=== PATIENT | female | born 1960 | race Caucasian/White ===

== ENCOUNTER → 2019-08-06 | Day surgery (SDC) | payer MEDICARE, MEDICAID ==
[~2019-08-06] MED LIST: ACETAMINOPHEN 1,000 MG/100 ML BTL IVPB ONE; BUPIVACAINE 0.5% W/EPI MPF 30 ML VIAL SQ ONE; CLINDAMYCIN 600MG/50ML PREMIX 600 MG/50 ML BAG IVPB ONE; Clindamycin 600mg vial 150 MG/ML VIAL IR ONE; FAMOTIDINE 20MG TABLET PO ONE; FENTANYL PF 100MCG/2ML VIAL IV ONE; LIDOCAINE 1% W/EPI 1:200,000 MPF 30ML SQ ONE; LIDOCAINE 2% MDV (20MG/ML) 20ML VIAL IV ONE; MECLIZINE 25 MG TABLET PO ONE; METOCLOPRAMIDE 10 MG TABLET PO ONE; MIDAZOLAM HCL 2MG/2ML VIAL IV ONE; MORPHINE SULFATE IV ONE; PROPOFOL 10 MG/ML VIAL IV ONE; RINGERS SOLUTION,LACTATED 1,000 ML IV ONE; SODIUM CHLORIDE 0.9% IV ONE
--- NOTE | 2019-08-06 07:46 | History and Physical - [facility] ---
CHIEF COMPLAINT/HISTORY OF CHIEF COMPLAINT: This patient with a history of a post cervical laminectomy radiculopathy has an implanted spinal infusion system which was infusing Hydromorphone. This patient was unable to make appropriate visits and sessions for the refill, the pump has gone dry and has been nonfunctional for an extended period of time. Because of the potential risks of a device nonfunctional over a period of months and by her request to reactivate the system she is here for pump change along with catheter testing for appropriate functionality. PAST MEDICAL HISTORY: Asthmatic bronchitis, hepatitis, depression, and difficulty sleeping. PAST SURGICAL HISTORY: Hysterectomy, appendectomy, and cervical spine fusion. MEDICATIONS ON ADMISSION: List to be provided. ALLERGIES: PENICILLIN AND SEAFOOD. FAMILY/PSYCHOSOCIAL HISTORY: Social history - Smoking. Family history - Cancer, cerebrovascular disease, and asthma. SYSTEMS REVIEW: The patient seems appropriate although anxious. The remainder of the systems review is positive for headaches, sleep disturbance, and degenerative arthritis. PHYSICAL EXAMINATION: Height is 5'8", weight is 150. No vital signs. HEENT: Within normal limits. LUNGS: Clear. HEART: Rapid and regular. ABDOMEN: Nontender. MUSCULOSKELETAL: Examination of the musculoskeletal system shows the midline catheter incision approximating T12-L1, pump at the incisional site at the right posterior gluteal margin is identified, and the incisions are intact. Upper extremity functionality shows pain across both upper extremities along with pain moving across the back into both legs. Sensory ramires are intact. NEUROLOGIC: Cranial nerves are intact. IMPRESSION: 1. POST CERVICAL LAMINECTOMY SYNDROME, ICD-10 CODE M96.1 WITH CERVICAL RADICULOPATHY, ICD-10 CODE M54.12. 2. LUMBAR RADICULOPATHY, ICD-10 CODE M54.16. 3. IMPLANTED SPINAL INFUSION SYSTEM DEVICE NONFUNCTIONAL. PLAN: The patient is here for removal and replacement of the pump, at the same time to insure appropriate functionality we will test the spinal catheter. If the spinal catheter is nonfunctional then the catheter along with the pump will be changed. Her infusion will Hydromorphone, we will start at a basal rate of 0.2 mg a day at a standard starting concentration. A series of reprogramming's will be set-up. If the catheter is replaced then an epidural blood patchy will be acquired, if it is just simply the pump no blood patch. The procedure will be considered outpatient although an overnight stay will be evaluated depending upon the extent of surgery. The risks, side effects, and complications have been reviewed and discussed. JOB NUMBER: [id number] MTDD
--- NOTE | 2019-08-07 08:43 | Operative Note - [facility] ---
DATE OF SURGERY: 08/06/2019 PREOPERATIVE DIAGNOSIS: 1. POST CERVICAL LAMINECTOMY SYNDROME, ICD-10 CODE M96.1 WITH RADICULOPATHY, ICD-10 CODE M54.12 AND LUMBAR RADICULOPATHY, ICD-10 CODE M54.16. 2. IMPLANTED SPINAL CATHETER WITH INFUSION DEVICE NONFUNCTIONAL. OPERATION: 1. INCISION, SUBCUTANEOUS DISSECTION, REMOVAL AND REPLACEMENT OF PROGRAMMABLE PUMP 40 ML MEDTRONIC. 2. DIAGNOSTIC MYELOGRAPHY WITH RADIOLOGIC SUPERVISION AND INTERPRETATION UTILIZING INDWELLING CATHETER. 3. REPLACEMENT OF PUMP WITH NEW MEDTRONIC 40 ML PROGRAMMABLE FILLED MORPHINE 10 MG PER ML PLACED ONTO FIELD, INTERFACED TO INDWELLING CATHETER. 4. PLACEMENT OF CURVED ACCESS PALOMARES NEEDLE INTO ACCESS PORT, ASPIRATION AND CLEARING CATHETER OF OPIOID AND CSF MIXTURE. 5. DIAGNOSTIC MYELOGRAPHY WITH RADIOLOGIC SUPERVISION AND INTERPRETATION. 6. BOLUS MORPHINE INTO SUBARACHNOID SPACE WITH ACCESS PORT 0.05 MG. 7. PLACEMENT OF PUMP WITH CATHETER INTO POUCH SECURING TO POSTERIOR FASCIA NONABSORBABLE SUTURE THREE POINTS PUMP EYELETS AND CLOSURE OF INCISIONS USING STRATAFIX SUTURE 2-0 FASCIA AND 3-0 SKIN. DERMABOND CLOSURE. 8. PROGRAMMING OF PUMP TO DELIVER BY CONTINUOUS INFUSION MORPHINE AT 0.4 MG A DAY. SURGEON: Stephen Christianson D.O. ANESTHESIA: Local sedation. ANESTHESIA PROVIDER: ROGERS Jimenez CRNA INDICATION: This patient presents with a history of an intractable post cervical laminectomy and lumbar radiculopathy. An implanted infusion device with pump and catheter infusing Morphine because of Dilaudid allergies has been in place. Because of a number of hospitalizations the patient missed refill dates and programming dates resulting in complete volume depletion of the infusion and non-functionality of the system. By her request she is here for reactivation fo the system involving replacement of pump, testing of catheter, if abnormal replacing catheter. PROCEDURE: Intravenous line, vital sign monitoring, IV sedation, prepped and draped, sterile technique. The patient was positioned prone. Sterile prep, sterile technique. At the midline catheter incision and pump pouch right posterior gluteal margin. With imaging for guidance and using local for infiltration, the pump pouch at the right posterior gluteal margin was infiltrated, a local incision was made, and subcutaneous dissection was conducted. The pouch was opened and the pump was exteriorized. With the pump catheter connection still in place a curved 24-gauge Palomares needle was inserted into the access port and 1 ml of catheter contents was successfully aspirated through the catheter. The pump was then removed from the indwelling catheter and a new 40 ml programmable prefilled Morphine 10 mg per ml was placed onto the field. The new pump prefilled Morphine was then interfaced with the existing catheter using the curved Palomares needle inserted into the access port 1 ml of catheter contents was again aspirated clearing catheter of CSF mixture. Contract was then injected through the access port. The resulting flow characteristics showed the catheter position at T12-L1 with appropriate myelogram flow characteristics noted confirming functionality of the system. A bolus of Morphine had already been given. The pump was secured to the posterior fascia with nonabsorbable suture in three points pump eyelets. The incision was then closed using Stratafix suture 2-0 fascia and 3-0 skin. Dermabond closure. The pump was programmed to deliver by continuous infusion Morphine at 0.4 mg a day. Dermabond dressing had been applied to the incisional sites and she was transported to the Recovery Room stable. No side effects from the procedure or sedation. She will be kept overnight for observation and discharged in the morning. DISCHARGE INSTRUCTIONS: 1. The sites are to remain clean and dry. No showering or bathing in any way although the Dermabond will allow showering, she is to not sit in water. 2. Standard medications resumed including the antibiotic Levaquin 500 mg once a day for fourteen days. 3. Spinal opioid side effects, respiratory depression, nausea, vomiting, constipation, urinary retention, cellulitis or rash have all been discussed and reviewed. Should any of these happen she is to contact the clinic. All other instructions are provided. She will be seen in the office in 7-10 days. Office to contact the patient in 24-48 hours upon discharge to set up a time for evaluation. Spinal opioid side effects, respiratory depression, nausea, vomiting, constipation, urinary retention, cellulitis or rash have been reviewed several times with the patient. She was then prepared for discharge in the morning. JOB NUMBER: [id number] MTDD
== END | disposition home or self-care (01) ==
LOC: SUR 11:43
PROVIDERS: ATTEND Pain Medicine Interventional Pain Medicine
DX: Z45.1 Encounter for adjustment and management of infusion pump (principal); M54.12 Radiculopathy, cervical region; J44.9 Chronic obstructive pulmonary disease, unspecified; G47.33 Obstructive sleep apnea (adult) (pediatric); B19.20 Unspecified viral hepatitis C without hepatic coma
CPT/HCPCS: 62367; C1776; J7120